=== PATIENT | male | born 1935 ===

== ENCOUNTER → 2018-02-14 | Outpatient (REF) ==
[2018-02-14 17:34] LABS: CALCIUM 8.8 mg/dL (8.4-10.2); CREATININE, serum 0.61 mg/dL (0.66-1.25); MAGNESIUM 1.9 mg/dL (1.6-2.3); POTASSIUM 5.5 mmol/L (3.4-5.0)
== END ==
LOC: ZCOL.LAB 16:53
PROVIDERS: Internal Medicine
DX: Z01.89 Encounter for other specified special examinations (principal)